=== PATIENT | female | born 1995 | race Caucasian/White ===

== ENCOUNTER → 2017-03-05 | Outpatient (CLI) | payer OTHER ==
[2017-03-05 12:02] LABS: CH 34.2; CHCM 34.3; HCT 38.4 % (34.0-46.0); HDW 2.41; HGB 13.4 gm/dL (11.4-16.0); MCH 35.1 pg (25.0-35.0); MCV 100.3 fL (80.0-100.0); Mean Platelet Volume 7.2; RBC 3.83 m/uL (3.80-5.40); RDW 12.4 % (11.5-15.5); WBC 7.6 k/uL (4.0-11.0)
[2017-03-05 12:10] LABS: Glucose 78 mg/dL (74-99); Non-African American GFR(MDRD) >60 (>60 ml/min/1.73 sqM)
[2017-03-05 12:41] LABS: Hepatitis B Surface Ag Index 0.07
[2017-03-05 15:43] LABS: Treponemal Ab Non-Reactive (Non-Reactive)
[2017-03-06 06:42] LABS: Toxoplasma Antibody (IgG) <3.0 IU/mL (<7.2)
[2017-03-09 14:38] LABS: HIV-1/HIV-2 Ab Screen NONREAC
== END | disposition home or self-care (01) ==
LOC: LABWHC1 11:28
PROVIDERS: ATTEND Obstetrics & Gynecology
DX: O26.811 Pregnancy related exhaustion and fatigue, first trimester (principal); Z3A.00 Weeks of gestation of pregnancy not specified
CPT/HCPCS: 36415; 82565; 82947; 85027; 86762; 86777; 86778; 86780; 86850; 86900; 86901; 87340; 87389; 87390

== ENCOUNTER → 2017-03-10 | Outpatient (CLI) | payer OTHER ==
--- NOTE | 2017-03-10 14:54 | US ---
EXAMINATION TYPE: US OB <= 14 wk fetus DATE OF EXAM: 03/10/2017 COMPARISON: NONE CLINICAL HISTORY: R68.89 Abd Pain during . Patient had previous ultrasound at doctor office. Patient states feeling cramping. EXAM PERFORMED: Transabdominal (TA) EXAM MEASUREMENTS: GESTATIONAL AGE / DATING Dates by LMP: (11 weeks/5 days) EDC: 09/24/2017 Dates by Current Scan for: (9 weeks/1 days) EDC: 10/12/2017 MATERNAL ANATOMY Uterus: 12.3 x 7.8 x 4.9 cm Right Ovary: 3.1 x 2.1 x 1.9 cm Left Ovary: 2.5 x 1.7 x 0.9 cm Post CDS / Adnexa: free fluid Presence of free fluid: cul de sac and adjacent to RO Presence of corpus luteal cyst: right ovarian hypoechoic lesion = 1.4 x 1.6 x 1.2 cm Presence of subchorionic bleed: no GESTATION / SURVEY CRL: 2.4 cm (9 weeks/1 days) MSD: seen, not measured Yolk Sac (normal less than 6mm): 3.0 mm Heart Rate: 170 bpm Rhythm: Normal IUP: Viable IUP Date of LMP: 12/18/2016, Beta HcG (if available): not available Live single IUP measuring 9 weeks 1 day IMPRESSION 1. Single live intrauterine with a sonographic age of 9 weeks and 1 day and estimated date of delivery of 10/12/2017. 2. Small amount of right periovarian simple appearing free fluid, likely physiologic.
== END | disposition home or self-care (01) ==
LOC: RADUSWWP 12:34
PROVIDERS: ATTEND Obstetrics & Gynecology
DX: O26.891 Other specified pregnancy related conditions, first trimester (principal); Z3A.09 9 weeks gestation of pregnancy
CPT/HCPCS: 76801

== ENCOUNTER → 2017-04-29 | Outpatient (CLI) | payer OTHER ==
[2017-04-30 10:43] LABS: Alpha Fetoprotein 25.2 ng/mL; Alpha Fetoprotein (M.O.M) 0.67; B-HCG (M.O.M.) 0.43; Gestational Age (days) 2; Human Chorionic Gonadotropin 16.3 IU/mL; Inhibin A (M.O.M.) 0.76; Interpretation SeeBelow; Maternal Age at EDD (Yrs) 20; Smoker No; Unconjugated Estriol (M.O.M.) 1.04
== END | disposition home or self-care (01) ==
LOC: LABWHC1 10:34
PROVIDERS: ATTEND Obstetrics & Gynecology
DX: Z34.82 Encounter for supervision of other normal pregnancy, second trimester (principal)
CPT/HCPCS: 36415; 82105; 82677; 84702; 86336